=== PATIENT | female | born 1945 | race Caucasian/White ===

== ENCOUNTER 2024-07-26 06:43 | Inpatient (IN) | payer MEDICARE, BC, SELFPAY ==
[2024-07-26] VITALS (25 sets, daily range): BP systolic 153–220; BP diastolic 73–104; PULSE 46–60; RESP 14–20; TEMP 36.4–36.7; O2SAT 93–99; BMI 26.6; BMI 26.0
--- NOTE | 2024-07-26 06:52 | CRLHL7_ITS ---
For Patients: As a result of the Century Cures Act, medical imaging exams and procedure reports are released immediately into your electronic medical record. You may view this report before your referring provider. If you have questions, please contact your health care provider. INDICATION: Stroke symptoms. Left vision deficit. TECHNIQUE: CT head without contrast. COMPARISON: None. FINDINGS: CSF spaces: Within normal limits for age. Brain parenchyma and extra-axial spaces: The paez-white differentiation is normal. No sign of acute ischemia. No sign of mass, hemorrhage, or midline shift. No extra-axial fluid collection. Skull base and calvarium: The visualized paranasal sinuses and mastoid air cells demonstrate no acute or significant findings. The visualized orbits are grossly unremarkable. No skull fractures. IMPRESSION: Unremarkable noncontrast head CT. No sign of acute ischemia or intracranial hemorrhage. Please note that all CT scans at this facility use dose modulation, iterative reconstruction, and/or weight-based dosing when appropriate to reduce radiation dose to as low as reasonably achievable. Dictated by Abhi Marshall MD @ 07/26/2024 7:34:50 AM (Electronically Signed)
--- NOTE | 2024-07-26 07:08 | CT_ITS ---
Patient: ELISA MUNGUIA Facility:?[facility] [place] [facility] Patient ID:?[id number] Site Patient ID:?[id number]. Site :?[id number] Study:?CT-Head Angio W/IV contrast STROKE CODE-07/26/2024 7:27:28 AM Ordering Physician:Mariposa Hubbard Final Report: CLINICAL HISTORY: Left visual deficit. TECHNIQUE: Standard helical CT image acquisition through the head following the administration of intravenous contrast was performed. 3D and MIP reconstructions were performed at a separate workstation and permanently archived. COMPARISON: None available. FINDINGS: No intracranial proximal large vessel occlusion or flow-limiting luminal stenosis. No evidence of cerebral aneurysm. No findings to suggest an arterial-venous shunting lesion. The major dural venous sinuses and deep venous system are patent. IMPRESSION: No intracranial proximal large vessel occlusion, flow-limiting luminal stenosis, or cerebral aneurysm. Please note that all CT scans at this facility use dose modulation, iterative reconstruction, and/or weight-based dosing when appropriate to reduce radiation dose to as low as reasonably achievable. Dictated by Magdaleno Oseguera MD @ 07/26/2024 10:59:44 AM Signed by:?Magdaleno Oseguera MD @07/26/2024 10:59:44 AM (Electronic Signature)
[2024-07-26 07:09] LABS: Basophils Absolute Auto 0.07 K/uL (0.00-0.30); Basophils Percent Auto 0.7 % (0.0-3.0); Eosinophils Percent Auto 2.9 % (0.0-7.0); Immature Granulocytes Abs Auto 0.02 K/uL (0.00-0.30); Immature Granulocytes Pct Auto 0.2 %; Lymphocytes Percent Auto 17.8 % (20-44); Mean Corpuscular HGB Conc 33 gm/dL (32-36); Mean Corpuscular Hemoglobin 31 pg (26-34); Mean Corpuscular Volume 94 fL (80-100); Monocytes Percent Auto 5.8 % (0.0-11.0); Neutrophils Percent Auto 72.6 % (42.0-72.0); Platelet Count* 197 K/uL (140-440); RDW Coefficient of Variation % 12.7 % (11.5-15.5); Red Blood Count 4.16 m/uL (4.00-5.20); White Blood Count* 10.49 K/uL (4.50-11.00)
[2024-07-26 07:15] LABS: Slide Review Reflex No
--- NOTE | 2024-07-26 07:34 | ED_ITS ---
HPI - General Adult General Chief complaint: Headache/Migraine <Haydee Piña MD - Last Filed: 07/29/24 00:00> Stated complaint: Headach and left eye visual issues <Haydee Piña MD - Last Filed: 07/29/24 00:00> Time Seen by Provider: 07/26/24 06:46 <Haydee Piña MD - Last Filed: 07/29/24 00:00> Source: patient and family <Haydee Piña MD - Last Filed: 07/29/24 00:00> Mode of arrival: ambulatory <Haydee Piña MD - Last Filed: 07/29/24 00:00> Limitations: no limitations <Haydee Piña MD - Last Filed: 07/29/24 00:00> History of Present Illness HPI narrative: 79-year-old female presents the emergency department with left-sided visual field deficits headache and elevated blood pressure. Last known well 8:00 p.m. last night when she went to bed. Woke at 5:00 a.m. as she typically does to get up to go to the bathroom and noticed that she was having a hard time seeing things on the left side of her world. It is unclear from her description if this was more of a neglect or a visual field deficit but I have I think vis ual field based on her description. She also noticed headache which was not present when she went to bed. was then awoken and he took her blood pressure and noticed it was markedly elevated for her, in the to 14 systolic range. Symptoms were not improving initially but may be starting to do a little bit better now. He brings her to the emergency department for further evaluation. She had been well until went to bed last night, no fevers, recent medication changes or illness. She has not take any anticoagulants, no prior history of stroke. No prior history of AFib, coronary artery disease and she is a nonsmoker. She does have a history of hypertension and rheumatological disease with rheumatoid arthritis and is on methotrexate for this. Did not try any interventions prior to coming to ED. no prior history of DVT or PE. No recent head injury. sHe did take 4-81mg aspirin at 6:30 a.m. prior to coming to ED. Past medical history as stated most notable for hypertension and rheumatoid arthritis. Home meds atenolol chlorthalidone atorvastatin lisinopril methotrexate potassium an sertraline. Doses listed as accurate per patient though I do not necessarily trust her knowledge of this. No known drug allergies. Nonsmoker. Still lives independently, accompanied by . ROS notable for the neurological changes as above only and headache. Otherwise denies times 12 systems <Hyadee Piña MD - Last Filed: 07/29/24 00:00> Related Data Home medications: Home Medications ?Medication ?Instructions ?Recorded ?Confirmed alendronate 70 mg tablet 70 mg PO .1xw 07/26/24 07/26/24 etanercept 50 mg/mL (1 mL) 50 mg subcut .1XW 07/26/24 07/26/24 subcutaneous pen injector (Enbrel SureClick) lisinopril 20 mg tablet 30 mg PO DAILY 07/26/24 07/26/24 methotrexate sodium 2.5 mg tablet 12.5 mg PO Q7D 07/26/24 07/26/24 potassium chloride 10 mEq 10 meq PO BID 07/26/24 07/26/24 tablet,extended release sertraline 50 mg tablet 50 mg PO DAILY 07/26/24 07/26/24 Previous Rx's ?Medication ?Instructions ?Recorded aspirin 81 mg chewable tablet 81 mg PO DAILY #100 tabs 07/28/24 (Children's Aspirin) atorvastatin 40 mg tablet 40 mg PO DAILY #30 tabs 07/28/24 chlorthalidone 25 mg tablet 25 mg PO DAILY #30 tabs 07/28/24 clopidogrel 75 mg tablet 75 mg PO DAILY #20 tabs 07/28/24 <Haydee Piña MD - Last Filed: 07/29/24 00:00> Allergies/adverse reactions: Allergies Allergy/AdvReac Type Severity Reaction Status Date / Time No Known Drug Allergies Allergy Verified 07/26/24 07:02 <Haydee Piña MD - Last Filed: 07/29/24 00:00> [facility] Medical History: Medical History (Updated 07/28/24 @ 09:56 by Janneth Lopez MD) Rheumatoid arthritis ?M06.9 - Rheumatoid arthritis, unspecified (ICD-10) Hypercholesteremia ?E78.00 - Pure hypercholesterolemia, unspecified (ICD-10) Osteoporosis ?M81.0 - Age-related osteoporosis without current pathological fracture (ICD- 10) Hypertension ?I10 - Essential (primary) hypertension (ICD-10) <Haydee Piña MD - Last Filed: 07/29/24 00:00> Surgical History: Surgical History (Updated 07/26/24 @ 10:45 by Janneth Lopez MD) H/O vein stripping ?Z98.890 - Other specified postprocedural states (ICD-10) <Haydee Piña MD - Last Filed: 07/29/24 00:00> Social History: Social History (Updated 07/26/24 @ 16:11 by Janneth Lopez MD) Narrative: 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 . Quit tobacco. One alcoholic drink per week. Denies recreational drugs. DNR/DNI. What is your current living situation?: I presently have a place to live Problems where you live: no known problems Problems where you live details: none In the past 12 months, utilities in danger of being shut off: no In past 12 months, lack of transportation kept you from medical appts, meetings, work, or getting things needed for daily living: no In the past 12 mos, have been you worried that your food would run out before you had money to buy more?: never true In the past 12 mos, the food you bought just didn't last and you didn't have money to buy more?: never true Highest level of school completed/degree received: Associate degree: occupational, technical, vocational program Smoking Status: Former smoker Nicotine containing products detail: quit smoking in her twenties, on and off smoker How often do you have a drink containing alcohol: monthly or less Alcohol type details: holiday drinker AUDIT-C Alcohol total score: 1 Non-prescribed substance use: denies use Caffeine: Yes (Tea) How often does anyone, including family, friends and others, physically hurt you : never How often does anyone, including family, friends and others, insult or talk down to you: never How often does anyone, including family, friends and others, threaten you with harm: never How often does anyone, including family, friends and others, scream or curse at you: never service: No <Haydee Piña MD - Last Filed: 07/29/24 00:00> Exam Const: Vital Signs, click to edit/add: Vital Signs - 24 hr 07/26/24 06:56 07/26/24 06:59 07/26/24 07:00 Temperature 98.0 F Pulse Rate 53 L 55 L Pulse Rate [Right Pulse Oximeter] 60 Respiratory Rate 20 Blood Pressure Blood Pressure [Ri ght Upper Arm] 220/104 H Pulse Oximetry 99 96 96 Oxygen Delivery Me thod Room Air 07/26/24 07:02 07/26/24 07:21 07/26/24 07:22 Temperature Pulse Rate 53 L 55 L 57 L Pulse Rate [Right Pulse Oximeter] Respiratory Rate Blood Pressure 194/95 H 190/89 H Blood Pressure [Ri ght Upper Arm] Pulse Oximetry 94 93 98 Oxygen Delivery Me thod 07/26/24 07:23 07/26/24 07:30 07/26/24 07:31 Temperature Pulse Rate 55 L 52 L 52 L Pulse Rate [Right Pulse Oximeter] Respiratory Rate Blood Pressure 181/84 H Blood Pressure [Ri ght Upper Arm] Pulse Oximetry 98 97 94 Oxygen Delivery Me thod 07/26/24 07:42 07/26/24 07:45 07/26/24 07:46 Temperature Pulse Rate 50 L 50 L 50 L Pulse Rate [Right Pulse Oximeter] Respiratory Rate Blood Pressure 185/92 H 185/86 H Blood Pressure [Ri ght Upper Arm] Pulse Oximetry 93 94 95 Oxygen Delivery Me thod 07/26/24 08:00 07/26/24 08:02 Temperature Pulse Rate 53 L 53 L Pulse Rate [Right Pulse Oximeter] Respiratory Rate Blood Pressure 195/94 H Blood Pressure [Ri ght Upper Arm] Pulse Oximetry 97 96 Oxygen Delivery Me thod <Haydee Piña MD - Last Filed: 07/29/24 00:00> Vital Signs, click to edit/add: Vital Signs - 24 hr 07/26/24 06:56 07/26/24 06:59 07/26/24 07:00 Temperature 98.0 F Pulse Rate 53 L 55 L Pulse Rate [Right Pulse Oximeter] 60 Respiratory Rate 20 Blood Pressure Blood Pressure [Ri ght Upper Arm] 220/104 H Pulse Oximetry 99 96 96 Oxygen Delivery Me thod Room Air 07/26/24 07:02 07/26/24 07:21 07/26/24 07:22 Temperature Pulse Rate 53 L 55 L 57 L Pulse Rate [Right Pulse Oximeter] Respiratory Rate Blood Pressure 194/95 H 190/89 H Blood Pressure [Ri ght Upper Arm] Pulse Oximetry 94 93 98 Oxygen Delivery Me thod 07/26/24 07:23 07/26/24 07:30 07/26/24 07:31 Temperature Pulse Rate 55 L 52 L 52 L Pulse Rate [Right Pulse Oximeter] Respiratory Rate Blood Pressure 181/84 H Blood Pressure [Ri ght Upper Arm] Pulse Oximetry 98 97 94 Oxygen Delivery Me thod 07/26/24 07:42 07/26/24 07:45 07/26/24 07:46 Temperature Pulse Rate 50 L 50 L 50 L Pulse Rate [Right Pulse Oximeter] Respiratory Rate Blood Pressure 185/92 H 185/86 H Blood Pressure [Ri ght Upper Arm] Pulse Oximetry 93 94 95 Oxygen Delivery Me thod 07/26/24 08:00 07/26/24 08:02 Temperature Pulse Rate 53 L 53 L Pulse Rate [Right Pulse Oximeter] Respiratory Rate Blood Pressure 195/94 H Blood Pressure [Ri ght Upper Arm] Pulse Oximetry 97 96 Oxygen Delivery Me thod <Stephen Gillette MD - Last Filed: 07/26/24 08:29> Common normals: no apparent distress <Haydee Piña MD - Last Filed: 07/29/24 00:00> General appearance: well kempt <Haydee Piña MD - Last Filed: 07/29/24 00:00> Other: Friendly and cooperative, speech is a little slow but easily understandable. Does not seem to have any deficits with word finding but some very mild memory impairment is detected. She can not list her medications and does rely on her for answering quite a few questions. <Haydee Piña MD - Last Filed: 07/29/24 00:00> HENMT: Common normals: normocephalic <Haydee Piña MD - Last Filed: 07/29/24 00:00> Head and scalp: normocephalic <Haydee Piña MD - Last Filed: 07/29/24 00:00> Face and sinus: normal facial exam <MD Wilfrido Olivarez Last Filed: 07/29/24 00:00> Mouth: oral and palatal mucosa normal <MD Wilfrido Olivarez Last Filed: 07/29/24 00:00> Teeth and gingiva: abnormal tooth and associated gingiva <MD Wilfrido Olivarez Last Filed: 07/29/24 00:00> Eye: Common normals: PERRL and conjunctivae normal <MD Wilfrido Olivarez Last Filed: 07/29/24 00:00> General eye: normal appearance of both eyes <MD Wilfrido Olivarez Last Filed: 07/29/24 00:00> Conjunctiva: conjunctiva(e) normal <MD Wilfrido Olivarez Last Filed: 07/29/24 00:00> Pupil: PERRL <MD Wilfrido Olivarez Last Filed: 07/29/24 00:00> Other: Visual field deficits to the left. Left eye seems more affected than right. <MD Wilfrido Olivarez Last Filed: 07/29/24 00:00> Neck & C-Spine: Common normals: full ROM, no lymphadenopathy and no meningeal signs <MD Wilfrido Olivarez Last Filed: 07/29/24 00:00> Other: No carotid bruit <MD Wilfrido Olivarez Last Filed: 07/29/24 00:00> Resp: Common normals: normal respiratory effort, no use of accessory muscles and clear to auscultation bilaterally <MD Wilfrido Olivarez Last Filed: 07/29/24 00:00> Effort & inspection: able to speak in complete sentences <MD Wilfrido Olivarez Last Filed: 07/29/24 00:00> Auscultation: clear to auscultation bilaterally <MD Wilfrido Olivarez Last Filed: 07/29/24 00:00> Cardio: Common normals: regular rate, regular rhythm, S1 normal heart sound, S2 normal heart sound and no murmurs <MD Wilfrido Olivarez Last Filed: 07/29/24 00:00> Rate: regular rate <MD Wilfrido Olivarez Last Filed: 07/29/24 00:00> Rhythm: regular rhythm <MD Wilfrido Olivarez Last Filed: 07/29/24 00:00> Heart sounds: S1 normal and S2 normal <MD Wilfrido Olivarez Last Filed: 07/29/24 00:00> GI: Common normals: Normal to inspection, nondistended, normoactive bowel sounds present, soft to palpation, non-tender, no hepatosplenomegaly and no masses <MD Wilfrido Olivarez Last Filed: 07/29/24 00:00> Palpation: soft and no hepatosplenomegaly <MD Wilfrido Olivarez Last Filed: 07/29/24 00:00> Extremity: Common normals: normal to inspection, full ROM, normal capillary refill and no pedal edema <MD Wilfrido Olivarez Last Filed: 07/29/24 00:00> Neuro: Common normals: CN's II-XII intact bilaterally, moves all extremities and no focal motor deficits <MD Wilfrido Olivarez Last Filed: 07/29/24 00:00> Meningeal signs: no meningeal signs <MD Wilfrido Olivarez Last Filed: 07/29/24 00:00> Speech: speech normal <MD Wilfrido Olivarez Last Filed: 07/29/24 00:00> Motor exam: strength 5/5 throughout and no movement abnormalities noted <MD Wilfrido Olivarez Last Filed: 07/29/24 00:00> Psych: Appearance: grossly normal and well kempt <MD Wilfrido Olivarez Last Filed: 07/29/24 00:00> Attitude: engaged <MD Wilfrido Olivarez Last Filed: 07/29/24 00:00> Mood and affect: euthymic mood <MD Wilfrido Olivarez Last Filed: 07/29/24 00:00> Insight: fair <MD Wilfrido Olivarez Last Filed: 07/29/24 00:00> Judgement: fair <Haydee Piña MD - Last Filed: 07/29/24 00:00> Skin: Common normals: no rashes or lesions noted <Haydee Piña MD - Last Filed: 07/29/24 00:00> General skin exam: no rashes or lesions noted <Haydee Piña MD - Last Filed: 07/29/24 00:00> Course Course ED Course: 79-year-old female presenting with left-sided vision deficits concerning for stroke. Elevated blood pressure as evidence to this possibility as does her headache. Last known well 8:00 p.m., presents out of typical thrombolytics window. Patient was taken urgently to CT where I examined her as she was getting the machine calibrated. Initial quick scan does not show any evidence of acute hemorrhage. Because of this I went ahead and asked the team to perform a CT angio right away as this would not lead to any delays and possible thrombolytics in her case. She returns back to the exam room where I performed a more comprehensive neurological exam. Thus far I am only detecting the left- sided visual field deficit. NIH stroke scale is 1-2. Blood pressure is now 190 after initially being around 220. I have consulted stroke Neurology, Dr. Cee. I have not yet ordered any aspirin or blood pressure lowering medications as he was going to start his assessment immediately. I will await his quick response. Patient also has not taken her morning medications and we could give these potentially to lower blood pressure. EKG, basic labs will be performed and I am awaiting the imaging results. I do anticipate handing over care to my in coming day shift team, Dr. Gillette at 0750am. <Haydee Piña MD - Last Filed: 07/29/24 00:00> Vital Signs Vital signs: Initial Vital Signs Temperature 98.0 F 07/26/24 06:56 Temperature Source Temporal Artery Scan 07/26/24 06:56 Pulse Rate 60 07/26/24 06:56 Respiratory Rate 20 07/26/24 06:56 Blood Pressure 220/104 H 07/26/24 06:56 Blood Pressure Mean 142 H 07/26/24 06:56 Blood Pressure Position Sitting 07/26/24 06:56 Pulse Oximetry 99 07/26/24 06:56 Oxygen Delivery Method Room Air 07/26/24 06:56 Vital Signs Temperature 98.0 F 07/26/24 06:56 Pulse Rate 60 07/26/24 06:56 Respiratory Rate 20 07/26/24 06:56 Blood Pressure 220/104 H 07/26/24 06:56 Pulse Oximetry 99 07/26/24 06:56 Oxygen Delivery Method Room Air 07/26/24 06:56 Temperature 98 F 07/28/24 11:00 Pulse Rate 68 07/28/24 11:00 Respiratory Rate 18 07/28/24 11:00 Blood Pressure 164/93 H 07/28/24 11:00 Pulse Oximetry 96 07/28/24 11:00 Oxygen Delivery Method Room Air 07/28/24 11:00 <Haydee Piña MD - Last Filed: 07/29/24 00:00> Initial Vital Signs Temperature 98.0 F 07/26/24 06:56 Temperature Source Temporal Artery Scan 07/26/24 06:56 Pulse Rate 60 07/26/24 06:56 Respiratory Rate 20 07/26/24 06:56 Blood Pressure 220/104 H 07/26/24 06:56 Blood Pressure Mean 142 H 07/26/24 06:56 Blood Pressure Position Sitting 07/26/24 06:56 Pulse Oximetry 99 07/26/24 06:56 Oxygen Delivery Method Room Air 07/26/24 06:56 Vital Signs Temperature 98.0 F 07/26/24 06:56 Pulse Rate 60 07/26/24 06:56 Respiratory Rate 20 07/26/24 06:56 Blood Pressure 220/104 H 07/26/24 06:56 Pulse Oximetry 99 07/26/24 06:56 Oxygen Delivery Method Room Air 07/26/24 06:56 Temperature 98 F 07/28/24 11:00 Pulse Rate 68 07/28/24 11:00 Respiratory Rate 18 07/28/24 11:00 Blood Pressure 164/93 H 07/28/24 11:00 Pulse Oximetry 96 07/28/24 11:00 Oxygen Delivery Method Room Air 07/28/24 11:00 <Stephen Gillette MD - Last Filed: 07/26/24 08:29> Medications Administered Medications: Discontinued Medications Generic Name Dose Route Start Last Admin Trade Name Freq PRN Reason Stop Dose Admin Acetaminophen 650 mg 07/26/24 11:11 07/26/24 23:42 Acetaminophen 325 Mg Tablet PO 650 mg Q6H PRN Administration Pain Aspirin 324 mg 07/27/24 09:00 07/27/24 08:38 Aspirin 81 Mg Tab.Chew PO 324 mg DAILY CELSO Administration Aspirin 81 mg 07/28/24 09:00 07/28/24 09:14 Aspirin 81 Mg Tab.Chew PO 81 mg DAILY CELSO Administration Atorvastatin Calcium 20 mg 07/27/24 09:00 07/27/24 08:39 Atorvastatin 10 Mg Tablet PO 20 mg DAILY CELSO Administration Atorvastatin Calcium 40 mg 07/28/24 09:00 07/28/24 09:14 Atorvastatin Calcium 40 Mg Tablet PO 40 mg DAILY CELSO Administration Atorvastatin Calcium 20 mg 07/27/24 12:10 07/27/24 12:23 Atorvastatin 10 Mg Tablet PO 07/27/24 12:11 20 mg ONCE ONE Administration Clopidogrel Bisulfate 75 mg 07/27/24 12:10 07/28/24 09:14 Clopidogrel 75 Mg Tablet PO 75 mg DAILY CELSO Administration Enoxaparin Sodium 40 mg 07/26/24 21:00 07/27/24 20:39 Enoxaparin 40 Mg/0.4 Ml Inj SUBCUT 40 mg HS CELSO Administration Potassium Chloride 10 meq 07/26/24 21:00 07/28/24 09:14 Potassium Chloride 10 Meq Capsule Er PO 10 meq BID CELSO Administration Sertraline HCl 50 mg 07/27/24 09:00 07/28/24 09:14 Sertraline 50 Mg Tablet PO 50 mg DAILY CELSO Administration Sodium Chloride 5 ml 07/26/24 21:00 07/28/24 09:17 Sodium Chloride 0.9 % (Flush) 10 Ml Syringe IVF 5 ml BID CELSO Administration <Haydee Piña MD - Last Filed: 07/29/24 00:00> Discontinued Medications Generic Name Dose Route Start Last Admin Trade Name Freq PRN Reason Stop Dose Admin Acetaminophen 650 mg 07/26/24 11:11 07/26/24 23:42 Acetaminophen 325 Mg Tablet PO 650 mg Q6H PRN Administration Pain Aspirin 324 mg 07/27/24 09:00 07/27/24 08:38 Aspirin 81 Mg Tab.Chew PO 324 mg DAILY CELSO Administration Aspirin 81 mg 07/28/24 09:00 07/28/24 09:14 Aspirin 81 Mg Tab.Chew PO 81 mg DAILY CELSO Administration Atorvastatin Calcium 20 mg 07/27/24 09:00 07/27/24 08:39 Atorvastatin 10 Mg Tablet PO 20 mg DAILY CELSO Administration Atorvastatin Calcium 40 mg 07/28/24 09:00 07/28/24 09:14 Atorvastatin Calcium 40 Mg Tablet PO 40 mg DAILY CELSO Administration Atorvastatin Calcium 20 mg 07/27/24 12:10 07/27/24 12:23 Atorvastatin 10 Mg Tablet PO 07/27/24 12:11 20 mg ONCE ONE Administration Clopidogrel Bisulfate 75 mg 07/27/24 12:10 07/28/24 09:14 Clopidogrel 75 Mg Tablet PO 75 mg DAILY CELSO Administration Enoxaparin Sodium 40 mg 07/26/24 21:00 07/27/24 20:39 Enoxaparin 40 Mg/0.4 Ml Inj SUBCUT 40 mg HS CELSO Administration Potassium Chloride 10 meq 07/26/24 21:00 07/28/24 09:14 Potassium Chloride 10 Meq Capsule Er PO 10 meq BID CELSO Administration Sertraline HCl 50 mg 07/27/24 09:00 07/28/24 09:14 Sertraline 50 Mg Tablet PO 50 mg DAILY CELSO Administration Sodium Chloride 5 ml 07/26/24 21:00 07/28/24 09:17 Sodium Chloride 0.9 % (Flush) 10 Ml Syringe IVF 5 ml BID CELSO Administration <Stephen Gillette MD - Last Filed: 07/26/24 08:29> Medical Decision Making MDM Narrative Medical decision making narrative: This patient was evaluated by Neurology using tele stroke technology. Dr. Gomez evaluated the patient and recommended admission to the hospital for a follow-up MRI when available. The patient has a left hemianopsia due to a small stroke. She does not have any other neurologic deficits. I spoke with the hospitalist on-call, Dr. Lopez, who agrees to her admission into the hospital for further evaluation and treatment. <Stephen Gillette MD - Last Filed: 07/26/24 08:29> Lab Data Lab results reviewed: Yes I reviewed the patient's lab results <Haydee Piña MD - Last Filed: 07/29/24 00:00> Labs: Lab Results 07/26/24 07/26/24 07/26/24 Range/Units 06:58 07:04 08:15 WBC 10.49 (4.50-11.00) K/uL RBC 4.16 (4.00-5.20) m/uL Hgb 13.0 (12.0-16.0) gm/dL Hct 39.0 (33.0-51.0) % MCV 94 (80-100) fL MCH 31 (26-34) pg MCHC 33 (32-36) gm/dL RDW Coeff of Leslie 12.7 (11.5-15.5) % Plt Count 197 (140-440) K/uL Neut % (Auto) 72.6 H (42.0-72.0) % Lymph % (Auto) 17.8 L (20-44) % [place] % (Auto) 5.8 (0.0-11.0) % Eos % (Auto) 2.9 (0.0-7.0) % Baso % (Auto) 0.7 (0.0-3.0) % Neut # (Auto) 7.60 H (1.7-7.0) K/uL Lymph # (Auto) 1.90 (0.90-2.90) K/uL [place] # (Auto) 0.60 (0.00-0.90) K/UL Eos # (Auto) 0.30 (0.00-0.50) K/uL Baso # (Auto) 0.07 (0.00-0.30) K/uL Abs Immat Gran (auto) 0.02 (0.00-0.30) K/uL Imm/Tot Granulo (auto) 0.2 % INR 0.91 (0.91-1.10) Sodium 137 (135-149) mmol/L Potassium 3.6 (3.6-5.1) mmol/L Chloride 102 (96-114) mmol/L Carbon Dioxide 29 (20-32) mmol/L Anion Gap 6 L (7-15) mEq/L BUN 28 (7-30) mg/dL Creatinine 0.9 (0.5-1.5) mg/dL Estimated Creat Clear 38.97 Estimated GFR 66 ml/min Glucose 92 (60-115) mg/dL Hemoglobin A1c (0-5.6) % Calcium 9.3 (8.4-10.6) mg/dL Total Bilirubin 1.0 (0.1-1.5) mg/dL AST 39 H (12-35) U/L ALT 13 (4-35) U/L Alkaline Phosphatase 56 (40-150) U/L Troponin I 0.02 (0.01-0.04) ng/mL C-Reactive Protein < 0.5 L (0.5-1.0) mg/dL Total Protein 8.3 (6.0-8.3) g/dL Albumin 4.8 (3.3-5.0) g/dL Triglycerides (40-149) mg/dL Cholesterol (90-199) mg/dL LDL Cholesterol, Calc (<100) mg/dL HDL Cholesterol (>=50) mg/dL Urine Color Yellow (Yellow) Urine Appearance Clear (Clear) Urine pH 6.5 (5.0-8.5) Ur Specific [place] 1.010 (1.000-1.030) Urine Protein Negative (Negative) Urine Glucose (UA) Negative (Negative) Urine Ketones Negative (Negative) Urine Blood Negative (Negative) Urine Nitrite Negative (Negative) Urine Bilirubin Negative (Negative) Urine Urobilinogen 0.2 (0.2-1.0) Ur Leukocyte Esterase Negative (Negative) 07/27/24 Range/Units 05:52 WBC (4.50-11.00) K/uL RBC (4.00-5.20) m/uL Hgb (12.0-16.0) gm/dL Hct (33.0-51.0) % MCV (80-100) fL MCH (26-34) pg MCHC (32-36) gm/dL RDW Coeff of Leslie (11.5-15.5) % Plt Count (140-440) K/uL Neut % (Auto) (42.0-72.0) % Lymph % (Auto) (20-44) % [place] % (Auto) (0.0-11.0) % Eos % (Auto) (0.0-7.0) % Baso % (Auto) (0.0-3.0) % Neut # (Auto) (1.7-7.0) K/uL Lymph # (Auto) (0.90-2.90) K/uL [place] # (Auto) (0.00-0.90) K/UL Eos # (Auto) (0.00-0.50) K/uL Baso # (Auto) (0.00-0.30) K/uL Abs Immat Gran (auto) (0.00-0.30) K/uL Imm/Tot Granulo (auto) % INR (0.91-1.10) Sodium (135-149) mmol/L Potassium (3.6-5.1) mmol/L Chloride (96-114) mmol/L Carbon Dioxide (20-32) mmol/L Anion Gap (7-15) mEq/L BUN (7-30) mg/dL Creatinine (0.5-1.5) mg/dL Estimated Creat Clear Estimated GFR ml/min Glucose (60-115) mg/dL Hemoglobin A1c 5.0 (0-5.6) % Calcium (8.4-10.6) mg/dL Total Bilirubin (0.1-1.5) mg/dL AST (12-35) U/L ALT (4-35) U/L Alkaline Phosphatase (40-150) U/L Troponin I (0.01-0.04) ng/mL C-Reactive Protein (0.5-1.0) mg/dL Total Protein (6.0-8.3) g/dL Albumin (3.3-5.0) g/dL Triglycerides 125 (40-149) mg/dL Cholesterol 258 H (90-199) mg/dL LDL Cholesterol, Calc 176 H (<100) mg/dL HDL Cholesterol 57 (>=50) mg/dL Urine Color (Yellow) Urine Appearance (Clear) Urine pH (5.0-8.5) Ur Specific [place] (1.000-1.030) Urine Protein (Negative) Urine Glucose (UA) (Negative) Urine Ketones (Negative) Urine Blood (Negative) Urine Nitrite (Negative) Urine Bilirubin (Negative) Urine Urobilinogen (0.2-1.0) Ur Leukocyte Esterase (Negative) <Haydee Piña MD - Last Filed: 07/29/24 00:00> Lab Results 07/26/24 07/26/24 07/26/24 Range/Units 06:58 07:04 08:15 WBC 10.49 (4.50-11.00) K/uL RBC 4.16 (4.00-5.20) m/uL Hgb 13.0 (12.0-16.0) gm/dL Hct 39.0 (33.0-51.0) % MCV 94 (80-100) fL MCH 31 (26-34) pg MCHC 33 (32-36) gm/dL RDW Coeff of Leslie 12.7 (11.5-15.5) % Plt Count 197 (140-440) K/uL Neut % (Auto) 72.6 H (42.0-72.0) % Lymph % (Auto) 17.8 L (20-44) % [place] % (Auto) 5.8 (0.0-11.0) % Eos % (Auto) 2.9 (0.0-7.0) % Baso % (Auto) 0.7 (0.0-3.0) % Neut # (Auto) 7.60 H (1.7-7.0) K/uL Lymph # (Auto) 1.90 (0.90-2.90) K/uL [place] # (Auto) 0.60 (0.00-0.90) K/UL Eos # (Auto) 0.30 (0.00-0.50) K/uL Baso # (Auto) 0.07 (0.00-0.30) K/uL Abs Immat Gran (auto) 0.02 (0.00-0.30) K/uL Imm/Tot Granulo (auto) 0.2 % INR 0.91 (0.91-1.10) Sodium 137 (135-149) mmol/L Potassium 3.6 (3.6-5.1) mmol/L Chloride 102 (96-114) mmol/L Carbon Dioxide 29 (20-32) mmol/L Anion Gap 6 L (7-15) mEq/L BUN 28 (7-30) mg/dL Creatinine 0.9 (0.5-1.5) mg/dL Estimated Creat Clear 38.97 Estimated GFR 66 ml/min Glucose 92 (60-115) mg/dL Hemoglobin A1c (0-5.6) % Calcium 9.3 (8.4-10.6) mg/dL Total Bilirubin 1.0 (0.1-1.5) mg/dL AST 39 H (12-35) U/L ALT 13 (4-35) U/L Alkaline Phosphatase 56 (40-150) U/L Troponin I 0.02 (0.01-0.04) ng/mL C-Reactive Protein < 0.5 L (0.5-1.0) mg/dL Total Protein 8.3 (6.0-8.3) g/dL Albumin 4.8 (3.3-5.0) g/dL Triglycerides (40-149) mg/dL Cholesterol (90-199) mg/dL LDL Cholesterol, Calc (<100) mg/dL HDL Cholesterol (>=50) mg/dL Urine Color Yellow (Yellow) Urine Appearance Clear (Clear) Urine pH 6.5 (5.0-8.5) Ur Specific [place] 1.010 (1.000-1.030) Urine Protein Negative (Negative) Urine Glucose (UA) Negative (Negative) Urine Ketones Negative (Negative) Urine Blood Negative (Negative) Urine Nitrite Negative (Negative) Urine Bilirubin Negative (Negative) Urine Urobilinogen 0.2 (0.2-1.0) Ur Leukocyte Esterase Negative (Negative) 07/27/24 Range/Units 05:52 WBC (4.50-11.00) K/uL RBC (4.00-5.20) m/uL Hgb (12.0-16.0) gm/dL Hct (33.0-51.0) % MCV (80-100) fL MCH (26-34) pg MCHC (32-36) gm/dL RDW Coeff of Leslie (11.5-15.5) % Plt Count (140-440) K/uL Neut % (Auto) (42.0-72.0) % Lymph % (Auto) (20-44) % [place] % (Auto) (0.0-11.0) % Eos % (Auto) (0.0-7.0) % Baso % (Auto) (0.0-3.0) % Neut # (Auto) (1.7-7.0) K/uL Lymph # (Auto) (0.90-2.90) K/uL [place] # (Auto) (0.00-0.90) K/UL Eos # (Auto) (0.00-0.50) K/uL Baso # (Auto) (0.00-0.30) K/uL Abs Immat Gran (auto) (0.00-0.30) K/uL Imm/Tot Granulo (auto) % INR (0.91-1.10) Sodium (135-149) mmol/L Potassium (3.6-5.1) mmol/L Chloride (96-114) mmol/L Carbon Dioxide (20-32) mmol/L Anion Gap (7-15) mEq/L BUN (7-30) mg/dL Creatinine (0.5-1.5) mg/dL Estimated Creat Clear Estimated GFR ml/min Glucose (60-115) mg/dL Hemoglobin A1c 5.0 (0-5.6) % Calcium (8.4-10.6) mg/dL Total Bilirubin (0.1-1.5) mg/dL AST (12-35) U/L ALT (4-35) U/L Alkaline Phosphatase (40-150) U/L Troponin I (0.01-0.04) ng/mL C-Reactive Protein (0.5-1.0) mg/dL Total Protein (6.0-8.3) g/dL Albumin (3.3-5.0) g/dL Triglycerides 125 (40-149) mg/dL Cholesterol 258 H (90-199) mg/dL LDL Cholesterol, Calc 176 H (<100) mg/dL HDL Cholesterol 57 (>=50) mg/dL Urine Color (Yellow) Urine Appearance (Clear) Urine pH (5.0-8.5) Ur Specific [place] (1.000-1.030) Urine Protein (Negative) Urine Glucose (UA) (Negative) Urine Ketones (Negative) Urine Blood (Negative) Urine Nitrite (Negative) Urine Bilirubin (Negative) Urine Urobilinogen (0.2-1.0) Ur Leukocyte Esterase (Negative) <Stephen Gillette MD - Last Filed: 07/26/24 08:29> Imaging Data CT scan - head: Attestation: I have reviewed the pertinent imaging results. <Haydee Piña MD - Last Filed: 07/29/24 00:00> My impression: Normal head CT <Haydee Piña MD - Last Filed: 07/29/24 00:00> Radiologist's impression: IMPRESSION: Unremarkable noncontrast head CT. No sign of acute ischemia or intracranial hemorrhage. Please note that all CT scans at this facility use dose modulation, iterative reconstruction, and/or weight-based dosing when appropriate to reduce radiation dose to as low as reasonably achievable. Dictated by Abhi Marshall MD @ 07/26/2024 7:34:50 AM <Haydee Piña MD - Last Filed: 07/29/24 00:00> ECG Data Attestation: I personally reviewed and interpreted this ECG as follows: <Haydee Piña MD - Last Filed: 07/29/24 00:00> Prior ECG tracings: not available for review <Haydee Piña MD - Last Filed: 07/29/24 00:00> Interpretation: Sinus bradycardia rate is 52. Does have a slight 1st degree AV block. Normal intervals otherwise and normal axis. No significant ST or T-wave abnormalities. 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 F/u Ophthalmology 1-2 weeks Outpatient cognitive testing with [facility] OT Neurology in 1-2 weeks 28 day Zio patch through [facility] Dual antiplatelet therapy (Aspirin and plavix) for 21 days, then Aspirin only. <Haydee Piña MD - Last Filed: 07/29/24 00:00> No driving until cleared by telephone lineworker and neurologist. F/u Ophthalmology 1-2 weeks Outpatient cognitive testing with [facility], OT Neurology in 1-2 weeks 28 day Zio patch through [facility] Dual antiplatelet therapy (Aspirin and plavix) for 21 days, then Aspirin only. <Stephen Gillette MD - Last Filed: 07/26/24 08:29> Discharge Diet: Heart Healthy (2 gm sodium, low fat) <Haydee Piña MD - Last Filed: 07/29/24 00:00> Heart Healthy (2 gm sodium, low fat) <Stephen Gillette MD - Last Filed: 07/26/24 08:29>
[2024-07-26 07:36] LABS: INR 0.91 (0.91-1.10); Prothrombin Time 12.8 Seconds
[2024-07-26 07:49] LABS: Albumin* 4.8 g/dL (3.3-5.0); Chloride* 102 mmol/L (96-114)
[2024-07-26 07:50] LABS: Potassium* 3.6 mmol/L (3.6-5.1); Sodium* 137 mmol/L (135-149)
[2024-07-26 07:52] LABS: Creatinine* 0.9 mg/dL (0.5-1.5); Est. Creatinine Clearance* 38.97; Estimated Glomerular Filt Rate 66 ml/min
[2024-07-26 07:53] LABS: Alanine Aminotransferase* 13 U/L (4-35); Alkaline Phosphatase* 56 U/L (40-150); Anion Gap 6 mEq/L (7-15); Aspartate Amino Transferase* 39 U/L (12-35); Blood Urea Nitrogen* 28 mg/dL (7-30); Calcium* 9.3 mg/dL (8.4-10.6); Carbon Dioxide* 29 mmol/L (20-32); Glucose* 92 mg/dL (60-115); Total Protein* 8.3 g/dL (6.0-8.3)
[2024-07-26 07:58] LABS: C Reactive Protein* < 0.5 mg/dL (0.5-1.0)
--- NOTE | 2024-07-26 08:11 | ED.NURSE ---
neuro consult completed
[2024-07-26 08:41] LABS: Appearance Urine Clear (Clear); Bilirubin Urine Negative (Negative); Blood Urine Negative (Negative); Color Urine Yellow (Yellow); Glucose Urine Negative (Negative); Ketones Urine Negative (Negative); Leukocyte Esterase Urine Negative (Negative); Nitrite Urine Negative (Negative); Protein Urine Negative (Negative); Urobilinogen Urine 0.2 (0.2-1.0); pH Urine 6.5 (5.0-8.5)
[2024-07-26 09:00] LABS: Troponin I* 0.02 ng/mL (0.01-0.04)
--- NOTE | 2024-07-26 10:37 | PM.IMHP1 ---
Hospitalist- H&P: HPI History of Present Illness Date Seen: 07/26/24 Chief complaint: Headach and left eye visual issues Narrative: Joanna Foster is a 79 year old female with a history of rheumatoid arthritis, essential hypertension, hypercholesterolemia, and osteoporosis was brought in by her today for concerns of a change in vision and headache. She went to bed last night feeling well and in her usual state of health. When she woke up around 5:00 a.m. she noticed that she could not see anything out of the left side of her vision. She also had a bitemporal headache. She woke her and told him about this. They took her blood pressure which was markedly elevated in the 200s over 100s. She tells me that her blood pressures have been high lately typically 150s to 180s, systolic, but this was unusually high. She denies any other neuro deficits, no numbness, weakness, or tingling. No difficulties with speech, confusion, or swallowing. She has not noticed much improvement in her vision yet. Additionally Carmen Richardson and her tell me that she has had a chronic cough. She has not yet seen the provider for this. It is intermittent over the last few years, is dry and hacking in nature. She thinks it is from sinus drainage or postnasal drip. She has not tried anything [id number] for this. She has noticed that it has been better in the last few days. She denies any recent illnesses, fevers, chills. She notes a history of GERD and does not take anything for that. She has no history of asthma. She is on methotrexate for rheumatoid arthritis. Review of Systems Status of ROS: Reports: 10 or more systems reviewed and unremarkable except as noted in History and below 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 . Quit tobacco. One alcoholic drink per week. Denies recreational drugs. DNR/DNI. What is your current living situation?: I presently have a place to live Problems where you live: no known problems Problems where you live details: none In the past 12 months, utilities in danger of being shut off: no In past 12 months, lack of transportation kept you from medical appts, meetings, work, or getting things needed for daily living: no In the past 12 mos, have been you worried that your food would run out before you had money to buy more?: never true In the past 12 mos, the food you bought just didn't last and you didn't have money to buy more?: never true Highest level of school completed/degree received: Associate degree: occupational, technical, vocational program Smoking Status: Former smoker Nicotine containing products detail: quit smoking in her twenties, on and off smoker How often do you have a drink containing alcohol: monthly or less Alcohol type details: holiday drinker AUDIT-C Alcohol total score: 1 Non-prescribed substance use: denies use Caffeine: Yes (Tea) How often does anyone, including family, friends and others, physically hurt you: never How often does anyone, including family, friends and others, insult or talk down to you: never How often does anyone, including family, friends and others, threaten you with harm: never How often does anyone, including family, friends and others, scream or curse at you: never service: No Meds Home Medications and Allergies Home Medications ?Medication ?Instructions ?Recorded ?Confirmed ?Type alendronate 70 mg tablet 70 mg PO .1xw 07/26/24 07/26/24 History atenolol 100 mg-chlorthalidone 25 1 tab PO DAILY 07/26/24 07/26/24 History mg tablet atorvastatin 20 mg tablet 20 mg PO DAILY 07/26/24 07/26/24 History etanercept 50 mg/mL (1 mL) 50 mg subcut .1XW 07/26/24 07/26/24 History subcutaneous pen injector (Enbrel SureClick) lisinopril 20 mg tablet 30 mg PO DAILY 07/26/24 07/26/24 History methotrexate sodium 2.5 mg tablet 12.5 mg PO Q7D 07/26/24 07/26/24 History potassium chloride 10 mEq 10 meq PO BID 07/26/24 07/26/24 History tablet,extended release sertraline 50 mg tablet 50 mg PO DAILY 07/26/24 07/26/24 History Allergies Allergy/AdvReac Type Severity Reaction Status Date / Time No Known Drug Allergies Allergy Verified 07/26/24 07:02 Exam Narrative: Exam Narrative: General: No acute distress. Awake alert oriented x3. HEENT: Normocephalic atraumatic, pupils equally round and reactive to light and accommodation. Oropharynx clear. Mucous membranes are moist. No cervical lymphadenopathy, thyromegaly or carotid bruits. No JVD. Cardiovascular: Regular rate and rhythm. No murmurs, gallops, or rubs. Chest: No increased work of breathing. Clear to auscultation bilaterally. No crackles or wheezes. Abdomen: Bowel sounds present. Soft, nondistended, nontender. No hepatosplenomegaly or masses. Extremities: No edema, no cyanosis or clubbing. Skin: No jaundice, no pallor, no rashes. Neuro: Romberg is negative. Left hononomous hemianopsia is present, central vision and right peripheral vision are intact. Cranial nerves 3-12 are intact. Extraocular movements are full. No nystagmus. No facial asymmetry. Tongue is midline. Strength is 5/5 in all 4 extremities. Light touch sensation is intact in face body and extremities. Coordination is intact in upper and lower extremities. Const: Vital Signs, click to edit/add: Vital Signs - 24 hr 07/26/24 06:56 07/26/24 06:59 07/26/24 07:00 Temperature 98.0 F Pulse Rate 53 L 55 L Pulse Rate [Pulse Oximeter] Pulse Rate [Right Pulse Oximeter] 60 Respiratory Rate 20 Blood Pressure Blood Pressure [Ri ght Arm] Blood Pressure [Ri ght Upper Arm] 220/104 H Pulse Oximetry 99 96 96 Oxygen Delivery Me thod Room Air 07/26/24 07:02 07/26/24 07:21 07/26/24 07:22 Temperature Pulse Rate 53 L 55 L 57 L Pulse Rate [Pulse Oximeter] Pulse Rate [Right Pulse Oximeter] Respiratory Rate Blood Pressure 194/95 H 190/89 H Blood Pressure [Ri ght Arm] Blood Pressure [Ri ght Upper Arm] Pulse Oximetry 94 93 98 Oxygen Delivery [facility] 07/26/24 07:23 07/26/24 07:30 07/26/24 07:31 Temperature Pulse Rate 55 L 52 L 52 L Pulse Rate [Pulse Oximeter] Pulse Rate [Right Pulse Oximeter] Respiratory Rate Blood Pressure 181/84 H Blood Pressure [Ri ght Arm] Blood Pressure [Ri ght Upper Arm] Pulse Oximetry 98 97 94 Oxygen Delivery [facility] 07/26/24 07:42 07/26/24 07:45 07/26/24 07:46 Temperature Pulse Rate 50 L 50 L 50 L Pulse Rate [Pulse Oximeter] Pulse Rate [Right Pulse Oximeter] Respiratory Rate Blood Pressure 185/92 H 185/86 H Blood Pressure [Ri ght Arm] Blood Pressure [Ri ght Upper Arm] Pulse Oximetry 93 94 95 Oxygen Delivery [facility] 07/26/24 08:00 07/26/24 08:02 07/26/24 08:03 Temperature Pulse Rate 53 L 53 L 53 L Pulse Rate [Pulse Oximeter] Pulse Rate [Right Pulse Oximeter] Respiratory Rate Blood Pressure 195/94 H Blood Pressure [Ri ght Arm] Blood Pressure [Ri ght Upper Arm] Pulse Oximetry 97 96 95 Oxygen Delivery [facility] 07/26/24 08:15 07/26/24 08:16 07/26/24 09:08 Temperature 98 F Pulse Rate 50 L Pulse Rate [Pulse Oximeter] 52 L Pulse Rate [Right Pulse Oximeter] Respiratory Rate 16 Blood Pressure 176/84 H Blood Pressure [Ri ght Arm] 186/85 H Blood Pressure [Ri ght Upper Arm] Pulse Oximetry 97 96 97 Oxygen Delivery [facility] Room Air 07/26/24 09:39 Temperature Pulse Rate Pulse Rate [Pulse Oximeter] Pulse Rate [Right Pulse Oximeter] Respiratory Rate 16 Blood Pressure Blood Pressure [Ri ght Arm] Blood Pressure [Ri ght Upper Arm] Pulse Oximetry 97 Oxygen Delivery [facility] Room Air Hospitalist - H&P: Result Labs Labs: Short CBC 07/26/24 Range/Units 06:58 WBC 10.49 (4.50-11.00) K/uL Hgb 13.0 (12.0-16.0) gm/dL Hct 39.0 (33.0-51.0) % Plt Count 197 (140-440) K/uL BMP 07/26/24 07:04 Sodium 137 Potassium 3.6 Chloride 102 Carbon Dioxide 29 BUN 28 Creatinine 0.9 Glucose 92 Calcium 9.3 Cardiac Enzymes 07/26/24 Range/Units 06:58 Troponin I 0.02 (0.01-0.04) ng/mL Liver Function 07/26/24 Range/Units 07:04 Total Bilirubin 1.0 (0.1-1.5) mg/dL AST 39 H (12-35) U/L ALT 13 (4-35) U/L Alkaline Phosphatase 56 (40-150) U/L Albumin 4.8 (3.3-5.0) g/dL Urine 07/26/24 Range/Units 08:15 Urine Color Yellow (Yellow) Urine Appearance Clear (Clear) Urine pH 6.5 (5.0-8.5) Ur Specific [place] 1.010 (1.000-1.030) Urine Protein Negative (Negative) Urine Glucose (UA) Negative (Negative) 07/26/2024 EKG: Sinus bradycardia with first-degree AV block, 52 beats per minute, otherwise normal EKG. Ordering Physician: Haydee Piña M.D. Date of Service: 07/26/24 Procedure(s): CT head/brain wo con Accession Number(s): [id number] cc: Haydee Piña M.D.~ For Patients: As a result of the Century Cures Act, medical imaging exams and procedure reports are released immediately into your electronic medical record. You may view this report before your referring provider. If you have questions, please contact your health care provider. INDICATION: Stroke symptoms. Left vision deficit. TECHNIQUE: CT head without contrast. COMPARISON: None. FINDINGS: CSF spaces: Within normal limits for age. Brain parenchyma and extra-axial spaces: The paez-white differentiation is normal. No sign of acute ischemia. No sign of mass, hemorrhage, or midline shift. No extra-axial fluid collection. Skull base and calvarium: The visualized paranasal sinuses and mastoid air cells demonstrate no acute or significant findings. The visualized orbits are grossly unremarkable. No skull fractures. IMPRESSION: Unremarkable noncontrast head CT. No sign of acute ischemia or intracranial hemorrhage. Please note that all CT scans at this facility use dose modulation, iterative reconstruction, and/or weight-based dosing when appropriate to reduce radiation dose to as low as reasonably achievable. Dictated by Abhi Marsahll MD @ 07/26/2024 7:34:50 AM (Electronically Signed) Study:?CT-Head Angio W/IV contrast STROKE CODE-07/26/2024 7:27:28 AM Ordering Physician:Mariposa Hubbard Final Report: CLINICAL HISTORY: Left visual deficit. TECHNIQUE: Standard helical CT image acquisition through the head following the administration of intravenous contrast was performed. 3D and MIP reconstructions were performed at a separate workstation and permanently archived. COMPARISON: None available. FINDINGS: No intracranial proximal large vessel occlusion or flow-limiting luminal stenosis. No evidence of cerebral aneurysm. No findings to suggest an arterial-venous shunting lesion. The major dural venous sinuses and deep venous system are patent. IMPRESSION: No intracranial proximal large vessel occlusion, flow-limiting luminal stenosis, or cerebral aneurysm. Please note that all CT scans at this facility use dose modulation, iterative reconstruction, and/or weight-based dosing when appropriate to reduce radiation dose to as low as reasonably achievable. Dictated by Magdaleno Oseguera MD @ 07/26/2024 10:59:44 AM (Electronic Signature) Study:?CT-Neck Angio W/IV contrast STROKE CODE-07/26/2024 7:28:00 AM Ordering Physician:Mariposa Hubbard Final Report: CLINICAL HISTORY: Left visual deficit. TECHNIQUE: Standard helical CT image acquisition through the neck was performed after intravenous contrast bolus enhancement. 3D and MIP reconstructions were performed at a separate workstation and permanently archived. COMPARISON: None available. FINDINGS: The origins of the great vessels from the aortic arch are patent. The common carotid arteries are patent. Calcified atherosclerotic plaque involves the bilateral carotid bifurcations and carotid bulbs but without significant luminal stenoses of the proximal ICAs by NASCET criteria. The more distal cervical segments of the ICAs are patent. The origins and cervical segments of the vertebral arteries are patent. IMPRESSION: Patent cervical arterial vasculature without hemodynamically significant luminal stenosis. Please note that all CT scans at this facility use dose modulation, iterative reconstruction, and/or weight-based dosing when appropriate to reduce radiation dose to as low as reasonably achievable. Dictated by Magdaleno Oseguera MD @ 07/26/2024 10:58:55 AM (Electronic Signature) Assessment and Plan Assessment and plan (1) Left homonymous hemianopsia due to recent cerebral infarction: Problem comment: - this is new this morning, time of onset is unknown as she went to bed well last night. This is associated with a bitemporal headache, the temporal headache is improving. CT head without contrast and CTA were done in the emergency department. Results are above and do not show any acute findings. Dr. Piña called stroke neuro. Dr. Gillette who took over for her spoke with Dr. Gomez from Neurology. He recommended admission including a daily aspirin 325 mg, permissive hypertension, VTE prophylaxis, therapies, repeat head CT without contrast tomorrow morning and MRI brain when able. MRI brain will not be available until Saturday. He also recommended cardiac telemetry and TTE without bubble. Status: Acute (2) Hypertension: Problem comment: I am holding all her antihypertensives medications to allow for permissive hypertension in the setting of suspected stroke. Monitor blood pressure and treat if systolic is greater than 220 or diastolic is greater than 120. Status: Chronic (3) Hypercholesteremia: Problem comment: Continue atorvastatin Status: Chronic (4) Rheumatoid arthritis: Problem comment: Hold methotrexate for now Status: Chronic (5) Bradycardia: Problem comment: I suspect this is secondary to atenolol use. Patient also has first-degree AV block. Hold atenolol. This has long half life and may take several days for her heart rate to improve. Status: Acute H&P: Quality Stroke Contraindication Not Initiating IV-Tpa: Contraindicated (Onset of symptom unknown) Symptom Onset Unknown: Yes
[2024-07-26] MEDS: ACETAMINOPHEN 325 MG TABLET 650 MG PO ×2 (14:40→23:42)
--- NOTE | 2024-07-26 18:09 | PC.NURSE ---
End of Shift: Patient pleasant and cooperative, admitted at 0900. Patient vitally stable, lungs clear, BS WNL, IV SL and intact. Patient independent, denies pain, but reported a headache, tylenol given. Patient has equal strength in all extremities but does lack vision in her left eye peripheral. Family describes patient has having short-term memory loss, but this newspaper writer questions if she has some dementia. Oriented to , self, but not time. Patient tolerating regular diet and urinating. Tele=sinus elmer.
[2024-07-26] MEDS: ENOXAPARIN 40 MG/0.4 ML INJ SUBCUT (20:46)
[2024-07-26] MEDS: POTASSIUM CHLORIDE 10 MEQ CAPSULE ER PO (20:46)
[2024-07-26] MEDS: SODIUM CHLORIDE 0.9 % (FLUSH) 10 ML SYRINGE 5 ML IVF (20:47)
[2024-07-27] VITALS (8 sets, daily range): BP systolic 116–153; BP diastolic 67–78; PULSE 56–79; RESP 12–16; TEMP 36.6–36.9; O2SAT 93–98
--- NOTE | 2024-07-27 06:46 | PC.NURSE ---
Pt is alert and oriented to self and place, has delayed response with time but was able to answer month and year.?Pt continues to have left visual cut. Pt reports 1-5/10 headache, managed with PRN Tylenol. Pt has equal strength in bilateral upper and lower extremities and facial symmetry. Pt is up ad jensen, voiding and tolerating a regular diet. ?
[2024-07-27 06:50] LABS: Cholesterol* 258 mg/dL (90-199); HDL Cholesterol* 57 mg/dL (>=50); LDL Cholesterol Calculated 176 mg/dL (<100); Triglycerides* 125 mg/dL (40-149)
--- NOTE | 2024-07-27 08:00 | CRLHL7_ITS ---
For Patients: As a result of the Century Cures Act, medical imaging exams and procedure reports are released immediately into your electronic medical record. You may view this report before your referring provider. If you have questions, please contact your health care provider. INDICATION: F/U POSSIBLE STROKE, L HEMIANOPSIA COMPARISON: 07/26/2024 TECHNIQUE: A CT volumetric acquisition was performed of the brain without IV contrast. Please note that all CT scans at this facility use dose modulation, iterative reconstruction, and/or weight-based dosing when appropriate to reduce radiation dose to as low as reasonably achievable. FINDINGS: Developing area of decreased attenuation within the medial right occipital lobe, series 2, image 31. Also new area focal decreased attenuation within the right superior cerebellum, 2/20 and within the upper medial cerebellum, 2/23. Chronic appearance of the right occipital horn of the lateral ventricle. Chronic white matter changes noted. Mild generalized cortical atrophy. No hemorrhage. No hydrocephalus or midline shift. IMPRESSION: Developing areas of decreased attenuation within the right medial occipital lobe and right superior cerebellum consistent with developing areas of ischemia/infarcts. MRI is recommended if patient is able. Please note that all CT scans at this facility use dose modulation, iterative reconstruction, and/or weight-based dosing when appropriate to reduce radiation dose to as low as reasonably achievable. Dictated by Venkata Hill MD @ 07/27/2024 9:14:18 AM (Electronically Signed)
[2024-07-27] MEDS: ASPIRIN 81 MG TAB.CHEW 324 MG PO (08:38)
[2024-07-27] MEDS: SERTRALINE 50 MG TABLET PO (08:39)
[2024-07-27] MEDS: POTASSIUM CHLORIDE 10 MEQ CAPSULE ER PO ×2 (08:39→20:39)
[2024-07-27] MEDS: ATORVASTATIN 10 MG TABLET 20 MG PO ×2 (08:39→12:23)
[2024-07-27] MEDS: SODIUM CHLORIDE 0.9 % (FLUSH) 10 ML SYRINGE 5 ML IVF ×2 (08:40→20:39)
--- NOTE | 2024-07-27 11:31 | CRLHL7_ITS ---
For Patients: As a result of the Century Cures Act, medical imaging exams and procedure reports are released immediately into your electronic medical record. You may view this report before your referring provider. If you have questions, please contact your health care provider. Indication: Left hemianopsia. Technique: Multisequence multiplanar MRI of the brain prior to and following administration of 15 cc Dotarem gadolinium based intravenous contrast. Comparison: Correlated with CT head from the same day at 9:02 a.m.. Findings: Diffusion restriction within the right paramedian occipital lobe and multifocal diffusion restriction within the right cerebellar hemisphere. Mild associated T2/FLAIR hyperintensity. No evidence of hemorrhagic conversion or focus of abnormal contrast enhancement. Scattered foci of T2 prolongation within the periventricular and subcortical white matter of both cerebral hemispheres typical of chronic small vessel ischemic changes. Incidentally noted left cerebellar developmental venous anomalies. Mild diffuse parenchymal volume loss. No ventricular obstruction. Flow voids of the larger intracranial arteries are preserved. Bone marrow signal intensity of the calvarium is within normal limits. The orbits and paranasal sinuses are unremarkable. Impression: 1. Acute or early subacute infarcts involving the right occipital lobe and right cerebellar hemisphere. 2. No evidence of hemorrhagic transformation. 3. Mild diffuse parenchymal volume loss and chronic small-vessel ischemic changes. Findings were discussed with Dr. Lopez on 07/27/2024 at 10:01 a.m.. Dictated by Gilmer Edmond MD @ 07/27/2024 10:05:33 AM (Electronically Signed)
--- NOTE | 2024-07-27 12:13 | P.IMPN_ITS ---
Progress Note: A&P Assessment and plan (1) CVA (cerebral vascular accident): Problem details: MRI brain 1. Acute or early subacute infarcts involving the right occipital lobe and right cerebellar hemisphere. 2. No evidence of hemorrhagic transformation. 3. Mild diffuse parenchymal volume loss and chronic small-vessel ischemic changes. Appreciate Dr. Nelson's recommendations, which I have implemented: - treat dyslipidemia (elevated LDL despite current dose of atorvastatin) - 28 day ziopatch as outpatient - aspirin 81mg plus plavix 75mg daily for 21 days, then aspirin 81mg alone after that - Outpatient ophthalmology and neurology appointments, no driving until cleared by these - outpatient cognitive testing - ECHO within the next few days Will keep patient to get ECHO tomorrow since I cannot schedule this as an outpatient today. Anticipate patient will be able to discharge home tomorrow after ECHO. Status: Acute (2) Left homonymous hemianopsia due to recent cerebral infarction: Problem details: - as above Status: Acute (3) Bradycardia: Problem details: - Improving. Has been off atenolol for a day. I suspect this is secondary to atenolol use. Patient also had first-degree AV block. I informed patient and family that I think she should stop atenolol altogether and avoid beta blockers. Status: Acute (4) Hypertension: Problem details: I am holding all her antihypertensives medications to allow for permissive hypertension in the setting of suspected stroke for 72 hours. Monitor blood pressure and treat if systolic is greater than 220 or diastolic is greater than 120. Status: Chronic (5) Hypercholesteremia: Problem details: - increase atorvastatin to high dose therapy, 40 mg daily, starting today. Status: Chronic (6) Rheumatoid arthritis: Problem details: Hold methotrexate for now Status: Chronic Plan VTE prophylaxis: TEDs, SCDs, low dose enoxaparin Time Spent With Patient Total time spent: Today I spent 35 minutes rounding on the patient. Greater than 50% included discussing care with the patient and her family, Dr. Scherer from Radiology, Dr. Nelson from Neurology, the team, reviewing data, updating and managing the care plan. Subjective Time Seen by Provider: 08:15 Date Seen: 07/27/24 Interval history: Joanna is doing well. No change in vision, L visual deficit still present. No headache, no new symptoms. I saw Joanna again after CT and MRI head and tele neuro consult (I spoke with Dr. Nelson twice before seeing Joanna for the second time today). Her , two daughters and son were in the room with her. We discussed the MRI findings and neurology recommendations. Exam Narrative: Exam Narrative: General: No acute distress. Awake alert oriented x3. Cardiovascular: Regular rate and rhythm. No murmurs, gallops, or rubs. Chest: No increased work of breathing. Clear to auscultation bilaterally. No crackles or wheezes. Extremities: No edema, no cyanosis or clubbing. Neuro: Romberg is negative. Left hononomous hemianopsia is persistent, central vision and right peripheral vision are intact. No facial asymmetry. Tongue is midline. Strength is 5/5 in all 4 extremities. Light touch sensation is intact in face body and extremities. Coordination is intact in upper and lower extremities. Const: Vital Signs, click to edit/add: Vital Signs - 24 hr 07/26/24 15:30 07/26/24 15:30 07/26/24 15:30 Temperature 97.6 F Pulse Rate Pulse Rate [Pulse Oximeter] 46 L 46 L 46 L Respiratory Rate 14 14 Blood Pressure [Le ft Arm] Blood Pressure [Ri ght Arm] 170/73 H Pulse Oximetry 98 Oxygen Delivery Me thod Room Air 07/26/24 15:30 07/26/24 16:09 07/26/24 19:18 Temperature Pulse Rate 48 L Pulse Rate [Pulse Oximeter] 53 L Respiratory Rate 14 Blood Pressure [Le ft Arm] Blood Pressure [Ri ght Arm] Pulse Oximetry 98 Oxygen Delivery Me thod Room Air 07/26/24 19:18 07/26/24 19:18 07/26/24 19:18 Temperature 97.5 F L Pulse Rate Pulse Rate [Pulse Oximeter] 53 L 53 L Respiratory Rate 16 16 Blood Pressure [Le ft Arm] Blood Pressure [Ri ght Arm] 153/81 H Pulse Oximetry 98 98 Oxygen Delivery Me thod Room Air Room Air 07/26/24 23:44 07/26/24 23:44 07/26/24 23:44 Temperature 98.1 F Pulse Rate 56 L Pulse Rate [Pulse Oximeter] 56 L 56 L Respiratory Rate 16 Blood Pressure [Le ft Arm] 157/85 H Blood Pressure [Ri ght Arm] Pulse Oximetry 97 Oxygen Delivery Me thod Room Air 07/27/24 03:55 07/27/24 03:55 07/27/24 07:49 Temperature 97.9 F Pulse Rate 61 Pulse Rate [Pulse Oximeter] 57 L 57 L Respiratory Rate 16 Blood Pressure [Le ft Arm] 142/76 H Blood Pressure [Ri ght Arm] Pulse Oximetry 97 Oxygen Delivery Me thod Room Air 07/27/24 07:55 07/27/24 07:55 07/27/24 07:55 Temperature 98.4 F Pulse Rate Pulse Rate [Pulse Oximeter] 56 L 56 L 56 L Respiratory Rate 12 12 Blood Pressure [Le ft Arm] 153/78 H Blood Pressure [Ri ght Arm] Pulse Oximetry 93 Oxygen Delivery Me thod Room Air 07/27/24 07:55 07/27/24 11:06 07/27/24 11:06 Temperature 98.4 F Pulse Rate Pulse Rate [Pulse Oximeter] 57 L 67 Respiratory Rate 12 14 Blood Pressure [Le ft Arm] 151/74 H Blood Pressure [Ri ght Arm] Pulse Oximetry 93 97 Oxygen Delivery Me thod Room Air Room Air Labs Labs: Laboratory Results - last 24 hr 07/27/24 05:52 Hemoglobin A1c 5.0 Triglycerides 125 Cholesterol 258 H LDL Cholesterol, Calc 176 H HDL Cholesterol 57 Ordering Physician: Janneth Lopez M.D. Date of Service: 07/27/24 Procedure(s): CT head/brain wo [facility] Accession Number(s): [id number] cc: Lorelei Doe M.D.; Janneth Lopez M.D.~ For Patients: As a result of the Cures Act, medical imaging exams and procedure reports are released immediately into your electronic medical record. You may view this report before your referring provider. If you have questions, please contact your health care provider. INDICATION: F/U POSSIBLE STROKE, L HEMIANOPSIA COMPARISON: 07/26/2024 TECHNIQUE: A CT volumetric acquisition was performed of the brain without IV contrast. Please note that all CT scans at this facility use dose modulation, iterative reconstruction, and/or weight-based dosing when appropriate to reduce radiation dose to as low as reasonably achievable. FINDINGS: Developing area of decreased attenuation within the medial right occipital lobe, series 2, image 31. Also new area focal decreased attenuation within the right superior cerebellum, 2/ and within the upper medial cerebellum, 01/17. Chronic appearance of the right occipital horn of the lateral ventricle. Chronic white matter changes noted. Mild generalized cortical atrophy. No hemorrhage. No hydrocephalus or midline shift. IMPRESSION: Developing areas of decreased attenuation within the right medial occipital lobe and right superior cerebellum consistent with developing areas of ischemia/infarcts. MRI is recommended if patient is able. Please note that all CT scans at this facility use dose modulation, iterative reconstruction, and/or weight-based dosing when appropriate to reduce radiation dose to as low as reasonably achievable. Dictated by Venkata Hill MD @ 07/27/2024 9:14:18 AM (Electronically Signed) Ordering Physician: Janneth Lopez M.D. Date of Service: 07/27/24 Procedure(s): MR head/brain wo/w con Accession Number(s): [id number] cc: Lorelei Doe M.D.; Janneth Lopez M.D.~ For Patients: As a result of the Cures Act, medical imaging exams and procedure reports are released immediately into your electronic medical record. You may view this report before your referring provider. If you have questions, please contact your health care provider. Indication: Left hemianopsia. Technique: Multisequence multiplanar MRI of the brain prior to and following administration of 15 cc Dotarem gadolinium based intravenous contrast. Comparison: Correlated with CT head from the same day at 9:02 a.m.. Findings: Diffusion restriction within the right paramedian occipital lobe and multifocal diffusion restriction within the right cerebellar hemisphere. Mild associated T2/FLAIR hyperintensity. No evidence of hemorrhagic conversion or focus of abnormal contrast enhancement. Scattered foci of T2 prolongation within the periventricular and subcortical white matter of both cerebral hemispheres typical of chronic small vessel ischemic changes. Incidentally noted left cerebellar developmental venous anomalies. Mild diffuse parenchymal volume loss. No ventricular obstruction. Flow voids of the larger intracranial arteries are preserved. Bone marrow signal intensity of the calvarium is within normal limits. The orbits and paranasal sinuses are unremarkable. Impression: 1. Acute or early subacute infarcts involving the right occipital lobe and right cerebellar hemisphere. 2. No evidence of hemorrhagic transformation. 3. Mild diffuse parenchymal volume loss and chronic small-vessel ischemic changes. Findings were discussed with Dr. Lopez on 07/27/2024 at 10:01 a.m.. Dictated by Gilmer Edmond MD @ 07/27/2024 10:05:33 AM (Electronically Signed) Progress Note: Quality Stroke Contraindication Not Initiating IV-Tpa: Contraindicated (Onset of symptom unknown) Symptom Onset Unknown: Yes
[2024-07-27] MEDS: CLOPIDOGREL 75 MG TABLET PO (12:23)
--- NOTE | 2024-07-27 14:10 | PC.NURSE ---
End of Shift: Patient pleasant and cooperative, oriented to self and . Patient vitally stable, lungs clear, BS WNL, IV SL and intact. Patient independent and denies pain. Patient continues to have left eye peripheral loss but it has improved. Patient tolerating regular diet and urinating well. Tele=NSR/Sinus [place].
[2024-07-27] MEDS: ENOXAPARIN 40 MG/0.4 ML INJ SUBCUT (20:39)
[2024-07-28 00:14] VITALS: BP 157/68; PULSE 74; RESP 16; TEMP 36.8; O2SAT 96
[2024-07-28 04:39] VITALS: BP 141/73; PULSE 67; RESP 14; TEMP 36.5; O2SAT 96
[2024-07-28 07:32] VITALS: PULSE 66
--- NOTE | 2024-07-28 07:49 | PC.NURSE ---
Pt is alert and oriented to self and place but has some difficulties with time.?Pt continues to have left visual cut but is improving. Denies pain, chest pain, SOB, and N/V. Pt has equal strength in bilateral upper and lower extremities and facial symmetry. Pt is up ad jensen, voiding and tolerating a regular diet. ?
[2024-07-28 08:10] VITALS: BP 153/74; PULSE 63; RESP 16; TEMP 37.1; O2SAT 97
--- NOTE | 2024-07-28 09:13 | P.DS_ITS ---
DS: Providers Provider Time Seen by Provider: 08:05 Date Seen: 07/28/24 Date of admission: 07/27/24 14:33 Primary care physician: Lorelei Doe MD Admitting Clinician: Janneth Lopez MD Consults: 07/26/24 11:11 Consult to Physical Therapy [CONS] Routine Comment: Reason(s) for PT Consult:: Evaluate and Treat Any Restrictions?:: No Restrictions 07/26/24 11:13 Consult to Occupational Therapy [CONS] Routine Comment: Reason(s) for OT Consult:: Evaluate and Treat Any Restrictions?:: No Restrictions Attending Physician on discharge: Janneth Lopez MD Date of Discharge: 07/28/24 DS: Diagnosis Discharge Diagnosis (1) CVA (cerebral vascular accident): Status: Acute Problem details: MRI brain 1. Acute or early subacute infarcts involving the right occipital lobe and right cerebellar hemisphere. 2. No evidence of hemorrhagic transformation. 3. Mild diffuse parenchymal volume loss and chronic small-vessel ischemic changes. Appreciate Dr. Nelson's recommendations, which I have implemented: - treat dyslipidemia (elevated LDL despite current dose of atorvastatin) - 28 day ziopatch as outpatient - aspirin 81mg plus plavix 75mg daily for 21 days, then aspirin 81mg alone after that - Outpatient ophthalmology and neurology appointments, no driving until cleared by these - outpatient cognitive testing - ECHO within the next few days ECHO today. Anticipate patient will be able to discharge home tomorrow after ECHO. (2) Left homonymous hemianopsia due to recent cerebral infarction: Status: Acute Problem details: - as above (3) Bradycardia: Status: Resolved Problem details: - Resoled. Has been off atenolol since admission. I suspect this is secondary to atenolol use. Patient also had first-degree AV block. I informed patient and family that I think she should stop atenolol altogether and avoid beta blockers. (4) Rheumatoid arthritis: Status: Chronic Problem details: Resume home methotrexate upon discharge (5) Hypercholesteremia: Status: Chronic Problem details: - increased atorvastatin to high dose therapy, 40 mg daily, started 07/27/24 (6) Hypertension: Status: Chronic Problem details: I held all her antihypertensives medications to allow for permissive hypertension in the setting of suspected stroke for 72 hours. Resume these medications (except atenolol) as outpatient. F/u with PCP for further BP management. DS: Summary Hospital Course Hospital Course: Joanna Foster is a 79 year old female with a history of rheumatoid arthritis, essential hypertension, hypercholesterolemia, and osteoporosis was brought in by her today for concerns of a change in vision and headache. She went to bed last night feeling well and in her usual state of health. When she woke up around 5:00 a.m. she noticed that she could not see anything out of the left side of her vision. She also had a bitemporal headache. She woke her and told him about this. They took her blood pressure which was markedly elevated in the 200s over 100s. She tells me that her blood pressures have been high lately typically 150s to 180s, systolic, but this was unusually high. She denies any other neuro deficits, no numbness, weakness, or tingling. No difficulties with speech, confusion, or swallowing. Since admission she has had slight improvement in her left peripheral vision w ith a now purplish hue rather than dense loss of vision, but the deficit persists per exam. MRI confirms acute stroke as above. Lipids were elevated for which I increased atorvastatin. Tele neuro saw this patient and gave recommnedations as above. She is getting an ECHO today and will be discharged home if it is unremarkable. Also of note is that she was bradycardic in the 40s upon admission and has a 1st degree AVB on EKG. Atenolol was held and bradycardia has resolved. I have stopped outpatient atenolol. I will have her f/u with her PCP to further address antihypertensive regimen. Please see diagnoses above for further details of the recommendations. Time Spent with Patient Time attestation: Total time spent providing and/or coordinating discharge services: Exam Narrative: Exam Narrative: General: No acute distress. Awake alert oriented. Cardiovascular: Regular rate and rhythm. No murmurs, gallops, or rubs. Chest: No increased work of breathing. Clear to auscultation bilaterally. No crackles or wheezes. Neuro: Left hononomous hemianopsia is persistent, central vision and right peripheral vision are intact. EOM intact. No nystagmus. No facial asymmetry. Tongue is midline. Strength is 5/5 in all 4 extremities. Light touch sensation is intact in face body and extremities. Const: Vital Signs, click to edit/add: Vital Signs - 24 hr 09/02/24 11:06 07/27/24 11:06 07/27/24 14:57 Temperature 98.4 F Pulse Rate Pulse Rate [Pulse Oximeter] 57 L 67 62 Respiratory Rate 14 14 Blood Pressure [Le ft Arm] 151/74 H Blood Pressure [Ri ght Arm] Pulse Oximetry 97 Oxygen Delivery Me thod Room Air 07/27/24 14:57 07/27/24 14:57 07/27/24 15:00 Temperature 98.4 F Pulse Rate 59 L Pulse Rate [Pulse Oximeter] 62 Respiratory Rate 14 14 Blood Pressure [Le ft Arm] Blood Pressure [Ri ght Arm] 116/69 Pulse Oximetry 98 98 Oxygen Delivery Me thod Room Air Room Air 07/27/24 19:49 07/27/24 22:24 07/28/24 00:14 Temperature 98.0 F 98.3 F Pulse Rate 69 Pulse Rate [Pulse Oximeter] 79 74 Respiratory Rate 16 16 Blood Pressure [Le ft Arm] 116/67 Blood Pressure [Ri ght Arm] 157/68 H Pulse Oximetry 98 96 Oxygen Delivery Me thod Room Air Room Air 07/28/24 04:39 07/28/24 08:10 Temperature 97.7 F 98.8 F Pulse Rate Pulse Rate [Pulse Oximeter] 67 63 Respiratory Rate 14 16 Blood Pressure [Le ft Arm] 153/74 H Blood Pressure [Ri ght Arm] 141/73 H Pulse Oximetry 96 97 Oxygen Delivery Me thod Room Air Room Air DS: Data Data Completed and Pending Completed studies during hospitalization: Twenty-four EKG: Sinus bradycardia with first-degree AV block, 52 beats per minute. WA interval 210 milliseconds. Otherwise normal EKG. Ordering Physician: Haydee Piña M.D. Date of Service: 07/26/24 Procedure(s): CT head/brain wo [facility] Accession Number(s): [id number] cc: Haydee Piña M.D.~ For Patients: As a result of the Century Cures Act, medical imaging exams and procedure reports are released immediately into your electronic medical record. You may view this report before your referring provider. If you have questions, please contact your health care provider. INDICATION: Stroke symptoms. Left vision deficit. TECHNIQUE: CT head without contrast. COMPARISON: None. FINDINGS: CSF spaces: Within normal limits for age. Brain parenchyma and extra-axial spaces: The paez-white differentiation is normal. No sign of acute ischemia. No sign of mass, hemorrhage, or midline shift. No extra-axial fluid collection. Skull base and calvarium: The visualized paranasal sinuses and mastoid air cells demonstrate no acute or significant findings. The visualized orbits are grossly unremarkable. No skull fractures. IMPRESSION: Unremarkable noncontrast head CT. No sign of acute ischemia or intracranial hemorrhage. Please note that all CT scans at this facility use dose modulation, iterative reconstruction, and/or weight-based dosing when appropriate to reduce radiation dose to as low as reasonably achievable. Dictated by Abhi Marshall MD @ 07/26/2024 7:34:50 AM (Electronically Signed) Ordering Physician: Janneth Lopez M.D. Date of Service: 07/27/24 Procedure(s): CT head/brain wo con Accession Number(s): [id number] cc: Lorelei Doe M.D.; Janneth Lopez M.D.~ For Patients: As a result of the Century Cures Act, medical imaging exams and procedure reports are released immediately into your electronic medical record. You may view this report before your referring provider. If you have questions, please contact your health care provider. INDICATION: F/U POSSIBLE STROKE, L HEMIANOPSIA COMPARISON: 07/26/2024 TECHNIQUE: A CT volumetric acquisition was performed of the brain without IV contrast. Please note that all CT scans at this facility use dose modulation, iterative reconstruction, and/or weight-based dosing when appropriate to reduce radiation dose to as low as reasonably achievable. FINDINGS: Developing area of decreased attenuation within the medial right occipital lobe, series 2, image 31. Also new area focal decreased attenuation within the right superior cerebellum, 2/20 and within the upper medial cerebellum, 2/23. Chronic appearance of the right occipital horn of the lateral ventricle. Chronic white matter changes noted. Mild generalized cortical atrophy. No hemorrhage. No hydrocephalus or midline shift. IMPRESSION: Developing areas of decreased attenuation within the right medial occipital lobe and right superior cerebellum consistent with developing areas of ischemia/infarcts. MRI is recommended if patient is able. Please note that all CT scans at this facility use dose modulation, iterative reconstruction, and/or weight-based dosing when appropriate to reduce radiation dose to as low as reasonably achievable. Dictated by Venkata Hill MD @ 07/27/2024 9:14:18 AM (Electronically Signed) Ordering Physician: Janneth Lopez M.D. Date of Service: 07/27/24 Procedure(s): MR head/brain wo/w con Accession Number(s): [id number] cc: Lorelei Doe M.D.; Janneth Lopez M.D.~ For Patients: As a result of the Cures Act, medical imaging exams and procedure reports are released immediately into your electronic medical record. You may view this report before your referring provider. If you have questions, please contact your health care provider. Indication: Left hemianopsia. Technique: Multisequence multiplanar MRI of the brain prior to and following administration of 15 cc Dotarem gadolinium based intravenous contrast. Comparison: Correlated with CT head from the same day at 9:02 a.m.. Findings: Diffusion restriction within the right paramedian occipital lobe and multifocal diffusion restriction within the right cerebellar hemisphere. Mild associated T2/FLAIR hyperintensity. No evidence of hemorrhagic conversion or focus of abnormal contrast enhancement. Scattered foci of T2 prolongation within the periventricular and subcortical white matter of both cerebral hemispheres typical of chronic small vessel ischemic changes. Incidentally noted left cerebellar developmental venous anomalies. Mild diffuse parenchymal volume loss. No ventricular obstruction. Flow voids of the larger intracranial arteries are preserved. Bone marrow signal intensity of the calvarium is within normal limits. The orbits and paranasal sinuses are unremarkable. Impression: 1. Acute or early subacute infarcts involving the right occipital lobe and right cerebellar hemisphere. 2. No evidence of hemorrhagic transformation. 3. Mild diffuse parenchymal volume loss and chronic small-vessel ischemic changes. Findings were discussed with Dr. Lopez on 07/27/2024 at 10:01 a.m.. Dictated by Gilmer Edmond MD @ 07/27/2024 10:05:33 AM (Electronically Signed) Discharge Plan Discharge Disposition: Home, Self-Care Date of Admission: 07/27/24 14:33 Attending Provider on Discharge: Janneth Lopez Consulting Providers: Arjun Nelson [place] Primary Care Provider: Lorelei Doe Condition: Stable Anticipated Discharge Date/Time: 07/28/24 12:41 Discharge Medications: New aspirin [Children's Aspirin] 81 mg Tablet,Chewable 81 mg PO DAILY Qty: 100 0RF chlorthalidone 25 mg tablet 25 mg PO DAILY Qty: 30 0RF atorvastatin 40 mg Tablet 40 mg PO DAILY Qty: 30 0RF clopidogrel 75 mg Tablet 75 mg PO DAILY Qty: 20 0RF Continued potassium chloride 10 mEq tablet extended release 10 meq PO BID methotrexate sodium 2.5 mg tablet 12.5 mg PO Q7D sertraline 50 mg tablet 50 mg PO DAILY lisinopril 20 mg tablet 30 mg PO DAILY Patient Comments: DOSE INCREASE 05/18 alendronate 70 mg tablet 70 mg PO .1xw Rx Instructions: ONCE WEEKLY Enbrel SureClick 50 mg/mL (1 mL) pen injector 50 mg subcut .1XW Discontinued atenolol-chlorthalidone 100-25 mg tablet 1 tab PO DAILY atorvastatin 20 mg tablet 20 mg PO DAILY Discharge Orders: Discharge Order (Routine); Ordered 07/28/24 Ordered By: Tana Jamison Patient Education: Aspirin (By mouth), Chlorthalidone (By mouth), Atorvastatin (By mouth), Clopidogrel (By mouth), Stroke (GEN) Activity Level: Activity as Tolerated Activity Detail: No driving until 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 F/u Ophthalmology 1-2 weeks Outpatient cognitive testing with [facility] in 1-2 weeks 28 day Zio patch through [facility] Dual antiplatelet therapy (Aspirin and plavix) for 21 days, then Aspirin only. Discharge Diet: Heart Healthy (2 gm sodium, low fat) Follow Up Appointments: Lorelei Doe MD [Primary Care Provider] - 08/04/24 11:10 am ([facility] for follow-up.) Forms: [employer] Info Instructions
[2024-07-28] MEDS: SERTRALINE 50 MG TABLET PO (09:14)
[2024-07-28] MEDS: ATORVASTATIN CALCIUM 40 MG TABLET PO (09:14)
[2024-07-28] MEDS: CLOPIDOGREL 75 MG TABLET PO (09:14)
[2024-07-28] MEDS: POTASSIUM CHLORIDE 10 MEQ CAPSULE ER PO (09:14)
[2024-07-28] MEDS: ASPIRIN 81 MG TAB.CHEW PO (09:14)
[2024-07-28] MEDS: SODIUM CHLORIDE 0.9 % (FLUSH) 10 ML SYRINGE 5 ML IVF (09:17)
--- NOTE | 2024-07-28 09:56 | NUTR.NU ---
RDN with nutrition screen for low fat, low cholesterol, and 2 gram sodium diet. Patient admitted with CVA and PMH including, but not limited to hypertension and hypercholesteremia. Patient reports a fair appetite and notes eating well. Per wellhead pumper, patient ate 25% at 1 meal and 75% at 2 meals yesterday. Current weight is at 151lbs on 07/28/24. No recent weight hx available to review at this time. Patient reports a UBW of ~145lbs. Heart healthy diet education provided to patient and designated caregiver. Discussed following a Mediterranean-style diet using the plate method that includes ? plate non-starchy vegetables and fruit, ? plate whole grains/starch, ? plate healthy protein (fish, poultry, legumes, nuts/seeds), and healthy fats. Discussed limiting saturated fat and sodium intake. Handouts provided to support discussion. RDN contact information provided and encouraged patient to call with questions. RDN to follow up as needed.
[2024-07-28 11:00] VITALS: BP 164/93; PULSE 68; RESP 18; TEMP 36.6; O2SAT 96
--- NOTE | 2024-07-28 14:57 | PC.NURSE ---
Discharged: Pt is pleasant, alert and oriented to self and place, though has difficulty with time. She stated there was a shadow over her left eye this morning but as the day proceeded it improved and she stated she could see her whole peripheral field. MD was notified. Denies pain, N/V, numbness or tingling. Pt has equal strength in bilateral upper and lower extremities and facial symmetry. She is up independently, on a regular diet and tolerating well. IV removed, tip intact. Discharged information provided to patient and spouse. Discharged home with .?
== END 2024-07-28 14:15 | disposition home or self-care (01) | DRG 66 ==
LOC: ED 08:29 → MEDSURG 08:50
PROVIDERS: Admitting Provider Family Medicine; Emergency Provider Family Medicine; PCP Family Medicine; Visit Provider Family Medicine
DX: I63.9 Cerebral infarction, unspecified (principal); H53.462 Homonymous bilateral field defects, left side; R51.9 Headache, unspecified; R00.1 Bradycardia, unspecified; T44.7X5A Adverse effect of beta-adrenoreceptor antagonists, initial encounter; M06.9 Rheumatoid arthritis, unspecified; Z79.631 Long term (current) use of antimetabolite agent; E78.5 Hyperlipidemia, unspecified; I10 Essential (primary) hypertension; I44.0 Atrioventricular block, first degree; E78.00 Pure hypercholesterolemia, unspecified; M81.0 Age-related osteoporosis without current pathological fracture
CPT/HCPCS: 36415; 70450; 70496; 70553; 80053; 80061; 81003; 83036; 84484; 85025; 85610; 86140; 93005; 93306; 97116; 97162; 97165; 97530; 97535; 99233; 99284; 99285; G0378; G0427; A9270; A9575; J1650; Q9967

== ENCOUNTER 2024-08-05 13:20 | Outpatient (RCR) | payer MEDICARE, BC, SELFPAY | END 2024-12-03 23:59 | disposition home or self-care (01) | PROVIDERS: PCP Family Medicine; Visit Provider Family Medicine | DX: G45.9 Transient cerebral ischemic attack, unspecified (principal); R41.89 Other symptoms and signs involving cognitive functions and awareness; Z51.89 Encounter for other specified aftercare | CPT/HCPCS: 97165; 97535 ==

== ENCOUNTER 2024-08-07 03:44 | Emergency (ER) | payer MEDICARE, BC, SELFPAY ==
[2024-08-07 03:48] VITALS: BP 225/108; PULSE 77; RESP 16; TEMP 36.4; O2SAT 97; BMI 25.4
--- NOTE | 2024-08-07 04:08 | ED.GENADULT ---
HPI - General Adult General Chief complaint: Hypertension Stated complaint: elevated blood pressure Time Seen by Provider: 08/07/24 04:00 History of Present Illness HPI narrative: Patient is a 79-year-old woman who had a approximately 10 days ago had a left homonymous hemianopsia which was transient and was felt to be secondary to TIA. She is on Plavix and aspirin and has not been having any real problems until waking up tonight feeling somewhat anxious and became concerned that her blood pressure was high. Which she did in fact have elevated blood pressure and transferred to the emergency room by private car. Blood pressure is 225/108 and she was extremely anxious. Again she had no further neurologic symptoms and no chest pain. Patient has been compliant with her blood pressure medication. They recently had an increase in what sounds like there lisinopril to 40 mg daily. They are checking the blood pressure at least every day. Related Data Home Medications ?Medication ?Instructions ?Recorded ?Confirmed alendronate 70 mg tablet 70 mg PO .1xw 07/26/24 08/07/24 etanercept 50 mg/mL (1 mL) 50 mg subcut .1XW 07/26/24 07/26/24 subcutaneous pen injector (Enbrel SureClick) lisinopril 20 mg tablet 30 mg PO DAILY 07/26/24 08/07/24 methotrexate sodium 2.5 mg tablet 12.5 mg PO Q7D 07/26/24 08/07/24 potassium chloride 10 mEq 10 meq PO BID 07/26/24 08/07/24 tablet,extended release sertraline 50 mg tablet 50 mg PO DAILY 07/26/24 08/07/24 Previous Rx's ?Medication ?Instructions ?Recorded aspirin 81 mg chewable tablet 81 mg PO DAILY #100 tabs 07/28/24 (Children's Aspirin) atorvastatin 40 mg tablet 40 mg PO DAILY #30 tabs 07/28/24 chlorthalidone 25 mg tablet 25 mg PO DAILY #30 tabs 07/28/24 clopidogrel 75 mg tablet 75 mg PO DAILY #20 tabs 07/28/24 Allergies Allergy/AdvReac Type Severity Reaction Status Date / Time No Known Drug Allergies Allergy Verified 07/26/24 07:02 Review of Systems Status of ROS: Reports: 10 or more systems reviewed and unremarkable except as noted in History and below [facility] Medical History Rheumatoid arthritis ?M06.9 - Rheumatoid arthritis, unspecified (ICD-10) Hypercholesteremia ?E78.00 - Pure hypercholesterolemia, unspecified (ICD-10) Osteoporosis ?M81.0 - Age-related osteoporosis without current pathological fracture (ICD-10) Hypertension ?I10 - Essential (primary) hypertension (ICD-10) Surgical History H/O vein stripping ?Z98.890 - Other specified postprocedural states (ICD-10) Social History Narrative: 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 . Quit tobacco. One alcoholic drink per week. Denies recreational drugs. DNR/DNI. What is your current living situation?: I presently have a place to live Problems where you live: no known problems Problems where you live details: none In the past 12 months, utilities in danger of being shut off: no In past 12 months, lack of transportation kept you from medical appts, meetings, work, or getting things needed for daily living: no In the past 12 mos, have been you worried that your food would run out before you had money to buy more?: never true In the past 12 mos, the food you bought just didn't last and you didn't have money to buy more?: never true Highest level of school completed/degree received: Associate degree: occupational, technical, vocational program Smoking Status: Former smoker Nicotine containing products detail: quit smoking in her twenties, on and off smoker How often do you have a drink containing alcohol: monthly or less Alcohol type details: holiday drinker AUDIT-C Alcohol total score: 1 Non-prescribed substance use: denies use Caffeine: Yes (Tea) How often does anyone, including family, friends and others, physically hurt you: never How often does anyone, including family, friends and others, insult or talk down to you: never How often does anyone, including family, friends and others, threaten you with harm: never How often does anyone, including family, friends and others, scream or curse at you: never service: No Exam Narrative: Exam Narrative: EXAM GENERAL: Patient appears comfortable and well. EYES: No scleral icterus. ENT: Tympanic membranes and oropharynx normal. THYROID: no thyroid nodules or thyromegaly. LYMPH: No supraclavicular or cervical lymphadenopathy. SKIN: Visible skin seen during exam normal or with benign process only. EXT: No dependent lower extremity pedal edema. HEART: Regular rate and rhythm with no murmurs, rubs, or gallops. LUNGS: Clear to auscultation bilaterally with no crackles or wheezes. ABD: Soft, non tender, non distended. PSYCH: Good eye contact, speech is not pressured. Neurologic cranial nerves 2-12 grossly intact no focal defects. Const: Vital Signs, click to edit/add: Vital Signs - 24 hr 08/07/24 03:48 Temperature 97.6 F Pulse Rate [Pulse Oximeter] 77 Respiratory Rate 16 Blood Pressure [Ri ght Upper Arm] 225/108 H Pulse Oximetry 97 Oxygen Delivery Me thod Room Air Course Course ED Course: Patient seen and examined. Vital Signs Vital signs: Initial Vital Signs Temperature 97.6 F 08/07/24 03:48 Temperature Source Temporal Artery Scan 08/07/24 03:48 Pulse Rate 77 08/07/24 03:48 Respiratory Rate 16 08/07/24 03:48 Blood Pressure 225/108 H 08/07/24 03:48 Blood Pressure Mean 147 H 08/07/24 03:48 Blood Pressure Position Sitting 08/07/24 03:48 Pulse Oximetry 97 08/07/24 03:48 Oxygen Delivery Method Room Air 08/07/24 03:48 Vital Signs Temperature 97.6 F 08/07/24 03:48 Pulse Rate 77 08/07/24 03:48 Respiratory Rate 16 08/07/24 03:48 Blood Pressure 225/108 H 08/07/24 03:48 Pulse Oximetry 97 08/07/24 03:48 Oxygen Delivery Method Room Air 08/07/24 03:48 Temperature 97.6 F 08/07/24 03:48 Pulse Rate 77 08/07/24 03:48 Respiratory Rate 16 08/07/24 03:48 Blood Pressure 225/108 H 08/07/24 03:48 Pulse Oximetry 97 08/07/24 03:48 Oxygen Delivery Method Room Air 08/07/24 03:48 Medical Decision Making MDM Narrative Medical decision making narrative: Patient presents completely neurologically intact with no chest pain extremely anxious with elevated blood pressure. I did a thorough neuro exam and find no focal defects. She recently had blood pressure medication adjusted and I do not believe adjusting any further at this point is in her best interest. I would recommend that she slows down a bit on the daily blood pressure readings and may be check it 1-2 times per week well with the blood pressure medicines adjust. She has no neurologic symptoms. At this time reassurance is provided they will continue primary care follow-up. Discharge Plan Discharge Clinical Impression: Hypertension Patient Disposition: Home, Self-Care Condition: Stable Instructions: Hypertension (ED) Additional Instructions: Continue current medications Follow-up with your doctor as needed and as scheduled. Activity Level: No Restrictions Discharge Diet: Regular Prescriptions: No Action potassium chloride 10 mEq tablet extended release 10 meq PO BID methotrexate sodium 2.5 mg tablet 12.5 mg PO Q7D sertraline 50 mg tablet 50 mg PO DAILY lisinopril 20 mg tablet 30 mg PO DAILY Patient Comments: DOSE INCREASE 05/18 alendronate 70 mg tablet 70 mg PO .1xw Rx Instructions: ONCE WEEKLY Enbrel SureClick 50 mg/mL (1 mL) pen injector 50 mg subcut .1XW aspirin [Children's Aspirin] 81 mg Tablet,Chewable 81 mg PO DAILY Qty: 100 0RF chlorthalidone 25 mg tablet 25 mg PO DAILY Qty: 30 0RF atorvastatin 40 mg Tablet 40 mg PO DAILY Qty: 30 0RF clopidogrel 75 mg Tablet 75 mg PO DAILY Qty: 20 0RF Follow Up/Referrals: Lorelei Doe MD [Primary Care Provider] - Stand Alone Forms: [employer] Info Instructions
== END 2024-08-07 04:27 | disposition home or self-care (01) ==
LOC: ED 04:19
PROVIDERS: Emergency Provider Internal Medicine; PCP Family Medicine
DX: I10 Essential (primary) hypertension (principal)
CPT/HCPCS: 99282; 99283